=== PATIENT | male | born 1990 | race Caucasian/White ===

== ENCOUNTER 2016-08-21 21:12 | Emergency (ER) | payer SELFPAY ==
[~2016-08-21] VITALS: Ht 175.3 cm; Wt 89.4 kg
[~2016-08-21 21:12] MED LIST: ALBUTEROL17 G1 IH; BACTRIM,SEPT1 TABLET PO; BENADRYL25 MG PO; CLEOCIN300 MG PO; KEFLEX500 MG PO; NOHOMEMEDS; PREDNISONE20 MG PO; VENTOLIN HFA18 GM IH; ZYRTEC5 MG PO
[2016-08-21] MEDS ORDERED: ROBITUSSIN NIG118 ML PO (22:44)
[2016-08-21 22:52] VITALS: BP 154/78
== END 2016-08-21 22:57 | disposition home or self-care (01) ==
LOC: EXP 21:12 → EME 21:12 → EXP 22:57
DX: J40 Bronchitis, not specified as acute or chronic (principal)
CPT/HCPCS: 71020; 99281; 99283; J8540